=== PATIENT | female | born 1960 | race Caucasian/White ===

== ENCOUNTER 2021-09-25 14:51 | Emergency (ER) | payer OTHER ==
[~2021-09-25] VITALS: Ht 160 cm; Wt 75.3 kg
[2021-09-25 14:53] VITALS: BP 137/76
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
--- NOTE | 2021-09-25 15:01 | NUR ---
ERVIN Norris is evaluating patient at bedside
[2021-09-25] MEDS: HYDROcodone/APAP 5/325 MG 1 TAB TAB PO ONE (15:07)
--- NOTE | 2021-09-25 15:17 | NUR ---
RAD at bedside
[2021-09-25 16:30] VITALS: BP 133/72
--- NOTE | 2021-09-25 16:41 | NUR ---
Patient discharged with v/s stable. Written and verbal after care instructions given and explained. Patient alert, oriented and verbalized understanding of instructions. Wheel Chair Assisted with to car. All questions addressed prior to discharge. ID band removed. Patient advised to follow up with PMD. No Rx given. Patient educated on indication of medication including possible reaction and side effects. Opportunity to ask questions provided and answered.
== END 2021-09-25 16:41 | disposition home or self-care (01) ==
LOC: MED 14:51
DX: S82.51XA Displaced fracture of medial malleolus of right tibia, initial encounter for closed fracture (principal); Z88.6 Allergy status to analgesic agent; Z98.890 Other specified postprocedural states; V09.9XXA Pedestrian injured in unspecified transport accident, initial encounter; Y93.89 Activity, other specified; Y92.89 Other specified places as the place of occurrence of the external cause; Y99.8 Other external cause status
CPT/HCPCS: 29105; 73590; 73610; 73630; 99284; Q0092